=== PATIENT | female | born 1985 | race Caucasian/White ===

== ENCOUNTER → 2016-11-27 | Outpatient (CLI) | payer BC ==
[~2016-11-27] MED LIST: ALPRAZOLAM PO; ATIVAN PO; BACTRIM DS TABL1 TA1 PO; BENADRYL25 M3 PO; BIRTH CONTROL PILL PO; CELEXA10 MG PO; CIPRO250 MG PO; K-DUR20 ME1 DOB; KEFLEX500 M1 PO; LEXAPRO; LEXAPRO20 MG PO; MOBIC PO; MOTRIN600 MG; NAPROSYN500 MG PO; NAPROXEN250 MG PO; NO MEDICATIONS; NORCO 7.5-3251 EACH PO; PROPRANOLOL HCL10 MG PO; PYRIDIUM PO; VISTARIL PO; XANAX0.5 M1 PO; ZOFRAN ODT4 MG SL; [UNRECOGNIZED DRUG - OTHER]
--- NOTE | ~2016-11-27 | MR113 ---
[facility] A Service of [facility] RADIOLOGY TEXT RESULTS PATIENT: WELLINGTON FLOOD LOCATION: [facility] : [birth year] UNIT #: [id number] AGE: [address]: NICKY VILLALBA SEX: F ORDER DR: [id number] [facility] [address] [place], [place] [address] [id number] O MR#: [id number] Acc #: [id number] NAME: WELLINGTON FLOOD. : 1985 SEX: F STUDY DATE/TIME: 11/27/2016 15:41 UNIT: [facility] ROOM: STUDY DESCRIPTION: MR Lumbar Wo Contrast Attending Physician: Nicky Villalba Aprn Referring Physician: Nicky Villalba Aprn Primary Care Physician: Janee Arreguin M.D. MRI CENTER REPORT This report is preliminary unless electronic signature is present. EXAM MRI of the lumbar spine without contrast. INDICATION Low back pain for 1 year. Pain radiating into the right side of the lower back. TECHNIQUE Multiplanar MRI of the lumbar spine without contrast. COMPARISON Lumbar spine radiographs dated 11/05/2016 and 07/18/2016. FINDINGS Vertebral body height and alignment is normal. There is no abnormal bone marrow signal. There are small Schmorl nodes associated with the superior endplate of T12 and L1. Signal characteristics of the distal thoracic spinal cord and the conus medullaris are within normal limits. The conus terminates at L1. L1-2: The L1-2 disc is within normal limits. No significant disc protrusion. No central canal or neural foraminal stenosis. There is mild bilateral facet arthropathy. L2-3: There is minimal posterior disc protrusion centrally. No central canal stenosis or significant neural foraminal stenosis. There is moderate bilateral facet arthropathy and mild ligamentum flavum hypertrophy. L3-4: L3-4 disc is within normal limits. There is moderate facet arthropathy and mild ligamentum flavum hypertrophy. No central canal stenosis. There is mild inferior neural foraminal stenosis bilaterally. [facility] A Service of [facility] RADIOLOGY TEXT RESULTS PATIENT: WELLINGTON FLOOD LOCATION: [facility] : 81 UNIT #: [id number] AGE: [address]: NICKY VILLALBA SEX: F ORDER DR: L4-5: The L4-5 disc is narrowed. There is a small broad-based disc protrusion. A small annular tear is noted on the left far lateral space. There is moderate facet arthropathy and mild ligamentum flavum hypertrophy. No significant central canal stenosis. There is moderate left and moderate right neural foraminal stenosis. L5-S1: The L5-S1 disc is within normal limits. There is moderate facet arthropathy. No central canal or neural foraminal stenosis. IMPRESSION 1. There are mild degenerative disc changes in the lumbar spine, however, the predominate abnormality is moderate facet arthropathy throughout the lumbar spine. 2. There is moderate bilateral neural foraminal stenosis at L4-5 due to the facet arthropathy. Dictated by... Rodolfo Timmons M.D. THIS IS AN ELECTRONICALLY VERIFIED REPORT Rodolfo Timmons M.D. at 11/28/2016 11:13 AM CHERISE/shantelle TD: 11/28/2016 10:28 JOB #: [id number] MRI CENTER REPORT COPY
== END | disposition home or self-care (01) ==
LOC: CMRI 14:14
DX: M54.5 Low back pain (principal); M47.816 Spondylosis without myelopathy or radiculopathy, lumbar region; M46.96 Unspecified inflammatory spondylopathy, lumbar region
CPT/HCPCS: 72148